=== PATIENT | female | born 1990 | race African-American/Black ===

== ENCOUNTER 2018-03-27 08:32 | Emergency (ER) | payer OTHER ==
[2018-03-27 08:58] VITALS: TEMP 98.3; BMI 23.2
--- NOTE | 2018-03-27 09:38 | PDOC ---
History of Present Illness - General History Source: Patient Exam Limitations: No Limitations - History of Present Illness Initial Comments: 03/27/18 09:36 Patient is a 28-year-old female, , currently 12 weeks and 4 days , who presents to the emergency department today for 1 day of vaginal bleeding. Patient states she woke up this morning and noticed blood on her panties. She states that she used the restroom a large amount of blood filled the toilet bowl. LMP was 12/30/17. Admits to nausea and vomiting, however patient states that this is in-line with her morning sickness. Denies fever, chills, abdominal pain, frequency, urgency and hematuria. RESIN FILTERER: Dr. Palomino <Mickie Valencia - Last Filed: 03/27/18 12:15> <Denise Morales - Last Filed: 03/27/18 15:43> - General Chief Complaint: Vaginal Bleeding Stated Complaint: VAGINAL BLEEDING (13 WKS ) Time Seen by Provider: 03/27/18 09:24 Past History - Travel Traveled outside of the country in the last 30 days: No Close contact w/someone who was outside of country & ill: No - Past Medical History Anemia: No Asthma: No Cancer: No Cardiac Disorders: No CVA: No COPD: No CHF: No Dementia: No Diabetes: No GI Disorders: Yes (reflux) Disorders: No HTN: No Hypercholesterolemia: No Liver Disease: No Psychiatric Problems: Yes (depression) Seizures: No Thyroid Disease: No - Surgical History Abdominal Surgery: No Appendectomy: No Cardiac Surgery: No Cholecystectomy: No Lung Surgery: No Neurologic Surgery: No Orthopedic Surgery: No - Reproductive History (#): 3 Para: 1 Therapeutic (s) & number: Yes (1) Tubal Ligation: No Spontaneous : 1 - Immunization History Immunization Up to Date: Yes - Suicide/Smoking/Psychosocial Hx Smoking History: Never smoked Have you smoked in the past 12 months: No Hx Alcohol Use: Yes (occasional) Drug/Substance Use Hx: Yes (marijuana) Substance Use Type: Marijuana Hx Substance Use Treatment: No (SMOKED 07/12/13) <Mickie Valencia - Last Filed: 03/27/18 12:15> <Denise Morales - Last Filed: 03/27/18 15:43> - Past Medical History Allergies/Adverse Reactions: Allergies Allergy/AdvReac Type Severity Reaction Status Date / Time No Known Drug Allergies Allergy Verified 03/27/18 08:56 Home Medications: Ambulatory Orders Naproxen [EC-Naprosyn] 500 mg PO BID #20 tablet.ec 02/10/14 Pantoprazole Sodium [Protonix -] 20 mg PO DAILY 02/10/14 traZODone HCL [Desyrel -] 50 mg PO HS 02/10/14 Ibuprofen [Motrin] 600 mg PO TID #30 tablet 09/18/15 Penicillin V Potassium [Pen Vee K -] 500 mg PO TID #30 tablet 09/18/15 Review of Systems - Review of Systems Able to Perform ROS?: Yes Comments:: 03/27/18 09:34 CONSTITUTIONAL: Absent: fever, chills, diaphoresis, generalized weakness, malaise, loss of appetite HEENT: Absent: rhinorrhea, nasal congestion, throat pain, throat swelling, difficulty swallowing, mouth swelling, ear pain, eye pain, visual Changes CARDIOVASCULAR: Absent: chest pain, loss of consciousness, palpitations, irregular heart rate, peripheral edema RESPIRATORY: Absent: cough, shortness of breath, dyspnea with exertion, orthopnea, wheezing, stridor, hemoptysis GASTROINTESTINAL: Absent: abdominal pain, abdominal distension, nausea, vomiting, diarrhea, constipation, melena, hematochezia GENITOURINARY: Present: vaginal bleeding Absent: dysuria, frequency, urgency, hesitancy, hematuria, flank pain, genital pain MUSCULOSKELETAL: Absent: myalgia, arthralgia, joint swelling SKIN: Absent: rash, itching, pallor HEMATOLOGIC/IMMUNOLOGIC: Absent: easy bleeding, easy bruising, lymphadenopathy, frequent infections ENDOCRINE: Absent: unexplained weight gain, unexplained weight loss, heat intolerance, cold intolerance NEUROLOGIC: Absent: headache, focal weakness or paresthesias, dizziness, unsteady gait, seizure, mental status changes, bladder or bowel incontinence PSYCHIATRIC: Absent: anxiety, depression, suicidal or homicidal ideation, hallucinations. Is the patient limited American proficient: No <Mickie Valencia - Last Filed: 03/27/18 12:15> *Physical Exam - Vital Signs Last Vital Signs Temp Pulse Resp BP Pulse Ox 98.3 F 89 16 118/54 L 100 03/27/18 08:57 03/27/18 08:57 03/27/18 08:57 03/27/18 08:57 03/27/18 08:57 - Physical Exam Comments: 03/27/18 09:34 GENERAL: Well developed, well nourished. Awake and alert. No acute distress. HEENT: Normocephalic, atraumatic. PERRLA, EOMI. No conjunctival pallor. Sclera are non- icteric. Moist mucous membranes. Oropharynx is clear. NECK: Supple. Full ROM. No JVD. Carotid pulses 2+ and symmetric, without bruits. No thyromegaly. No lymphadenopathy. CARDIOVASCULAR: Regular rate and rhythm. No murmurs, rubs, or gallops. Distal pulses are 2+ and symmetric. PULMONARY: No evidence of respiratory distress. Lungs clear to auscultation bilaterally. No wheezing, rales or rhonchi. ABDOMINAL: Soft. Non-tender. Non-distended. No rebound or guarding. No organomegaly. Normoactive bowel sounds. Pelvic: External genitalia normal without lesions.Vaginal vault with brownish discharge. No paco blood on bimanual exam. Cervix is long and closed. No cervical motion tenderness. Uterus is nontender and normal in size. Adnexa are nontender and without masses. MUSCULOSKELETAL Normal range of motion at all joints. No bony deformities or tenderness. No CVA tenderness. EXTREMITIES: No cyanosis. No clubbing. No edema. No calf tenderness. SKIN: Warm and dry. Normal capillary refill. No rashes. No jaundice. NEUROLOGICAL: Alert, awake, appropriate. Cranial nerves 2-12 intact. No deficits to light touch and temperature in face, upper extremities and lower extremities. No motor deficits in the in face, upper extremities and lower extremities. Normoreflexic in the upper and lower extremities. Normal speech. Toes are down- going bilaterally. Gait is normal without ataxia. PSYCHIATRIC: Cooperative. Good eye contact. Appropriate mood and affect. <Mickie Valencia - Last Filed: 03/27/18 12:15> - Vital Signs Last Vital Signs Temp Pulse Resp BP Pulse Ox 98.3 F 78 16 120/68 100 03/27/18 08:57 03/27/18 12:30 03/27/18 08:57 03/27/18 12:30 03/27/18 08:57 <Denise Morales - Last Filed: 03/27/18 15:43> ED Treatment Course - LABORATORY CBC & Chemistry Diagram: 03/27/18 10:03 <Mickie Valencia - Last Filed: 03/27/18 12:15> - LABORATORY CBC & Chemistry Diagram: 03/27/18 10:03 - ADDITIONAL ORDERS Additional order review: Laboratory Results 03/27/18 03/27/18 03/27/18 10:03 10:03 10:03 Beta HCG, Quant 64010.0 Urine Color Yellow Urine Appearance Clear Urine pH 5.0 Ur Specific Scotts 1.021 Urine Protein 1+ H Urine Glucose (UA) Negative Urine Ketones 2+ H Urine Blood 2+ H Urine Nitrite Negative Urine Bilirubin Negative Urine Urobilinogen 4.0 e.u/dl H Ur Leukocyte Esterase Negative Urine WBC (Auto) 4 Urine RBC (Auto) 8 Ur Epithelial Cells Rare Hyaline Casts 2 Urine Mucus Moderate Blood Type A POSITIVE Antibody Screen Negative 03/27/18 10:03 RBC 3.73 MCV 95.3 MCHC 32.7 RDW 13.2 MPV 8.4 Neutrophils % 68.5 D Lymphocytes % 21.7 D Monocytes % 7.3 Eosinophils % 1.9 D Basophils % 0.6 <Denise Morales - Last Filed: 03/27/18 15:43> Medical Decision Making - Medical Decision Making 03/27/18 12:16 Patient is a 28-year-old female who presents to the emergency department today with vaginal bleeding since this morning. Patient is currently 13 weeks by dates. -On bimanual exam, cervix is long and closed. No cervical motion tenderness or adnexal pain. Brownish discharge noted at the end of the exam on gloves. -Abdominal exam is normal without guarding rebound or tenderness. -Patient blood type is A+. -No leukocytosis or shift on CBC. HgB WNL. -Ultrasound shows a single intrauterine gestation measuring approximately 12 weeks. There is a heart rate of 174. R ovary appears unremarkable, L ovary was not visualized. -Most probable diagnosis threatened miscarriage at this time. We'll discharge patient home with supportive therapy, rest, and FEATHER RENOVATOR follow-up. -I discussed the physical exam findings, ancillary test results and final diagnoses with the patient. I answered all of the patient's questions. The patient was satisfied with the care received and felt comfortable with the discharge plan and treatment plan. The Patient agrees to follow up with the primary care physician/specialist within 24-72 hours. Return precautions were given. <CarlosTrey pattersonca - Last Filed: 03/27/18 12:15> *DC/Admit/Observation/Transfer - Discharge Dispostion Decision to Admit order: No <Mickie Valencia - Last Filed: 03/27/18 12:15> - Attestations Physician Attestion: I reviewed the case with the mid-level practitioner and agree with the mid- level practitioner's assessment, diagnosis and disposition. <Denise Morales - Last Filed: 03/27/18 15:43> Diagnosis at time of Disposition: Threatened miscarriage - Discharge Dispostion Disposition: HOME Condition at time of disposition: Stable - Referrals Referrals: Presley Aleman [Primary Care Provider] - Liliya Palomino MD [Staff Physician] - - Patient Instructions Printed Discharge Instructions: DI for Threatened Additional Instructions: Your ultrasound today showed a approximately 12 weeks along with a heart rate of 174. Your vaginal bleeding could possibly be from a threatened . Please follow up with her RESIN FILTERER this week. Please rest and drink plenty of fluids. Return to the emergency department for worsening pain, vaginal bleeding were you 're going through more than 1 sanitary napkin in hour, fevers, or if you have any changes in your symptoms. - Post Discharge Activity Forms/Work/School Notes: Back to Work
[2018-03-27 10:27] LABS: BASO % 0.6 % (0-2.0); EOS % 1.9 % (0-4.5); HEMATOCRIT 35.6 % (32.4-45.2); HEMOGLOBIN 11.6 GM/dL (10.7-15.3); LYMPH % 21.7 % (8-40); MCH 31.2 pg (25.7-33.7); MCHC 32.7 g/dl (32.0-36.0); MEAN CELL VOLUME 95.3 fl (80-96); MEAN PLT VOLUME 8.4 fl (7.5-11.1); MONO % 7.3 % (3.8-10.2); NEUT % 68.5 % (42.8-82.8); PLATELET COUNT 249 K/MM3 (134-434); RBC 3.73 M/mm3 (3.60-5.2); RDW 13.2 % (11.6-15.6); WHITE BLOOD COUNT 5.6 K/mm3 (4.0-10.0)
[2018-03-27 10:48] LABS: URINE APPEARANCE CLEAR; URINE BILIRUBIN NEGATIVE (<2.0 mg/dL); URINE COLOR YELLOW; URINE GLUCOSE (UA) NEGATIVE (NEGATIVE); URINE KETONE 2+ (NEGATIVE); URINE LEUK ESTERASE NEGATIVE (NEGATIVE); URINE NITRITE NEGATIVE (NEGATIVE); URINE PROTEIN 1+ (NEGATIVE); URINE UROBILINOGEN 4.0 E.U/dl mg/dL (0.2-1.0)
[2018-03-27 11:10] LABS: EPI CELLS RARE /HPF (FEW); URINE HYALINE CAST 2 /lpf; URINE MUCUS MODERATE
[2018-03-27 12:30] VITALS: BP 120/68; PULSE 78
== END 2018-03-27 12:30 | disposition home or self-care (01) ==
LOC: JER 08:32
DX: O26.891 Other specified pregnancy related conditions, first trimester (principal); O20.0 Threatened abortion; Z3A.12 12 weeks gestation of pregnancy
CPT/HCPCS: 36415; 76801-TC; 81003; 81015; 84702; 85025; 86850; 86900; 86901; 87086; 99282-25

== ENCOUNTER 2018-10-05 20:30 | Inpatient (IN) | payer OTHER ==
[2018-10-05] MEDS ORDERED: BUTORPHANOL TARTRATE 1 MG/ML VIAL IVPB ONE (21:28)
[2018-10-05] MEDS ORDERED: PROMETHAZINE HCL 25 MG/1 ML VIAL IVPUSH ONE (21:28)
[2018-10-05 21:31] LABS: BASO % 0.8 % (0-2.0); EOS % 3.3 % (0-4.5); HEMATOCRIT 32.4 % (32.4-45.2); HEMOGLOBIN 10.4 GM/dL (10.7-15.3); LYMPH % 24.6 % (8-40); MCH 29.3 pg (25.7-33.7); MEAN CELL VOLUME 91.3 fl (80-96); MEAN PLT VOLUME 9.5 fl (7.5-11.1); MONO % 8.4 % (3.8-10.2); NEUT % 62.9 % (42.8-82.8); PLATELET COUNT 230 K/MM3 (134-434); RBC 3.55 M/mm3 (3.60-5.2); RDW 13.7 % (11.6-15.6); WHITE BLOOD COUNT 8.9 K/mm3 (4.0-10.0)
[2018-10-05 21:54] LABS: INR 0.97 (0.83-1.09); PROTHROMBIN TIME (PATIENT) 11.5 SEC (9.7-13.0)
[2018-10-05 21:55] LABS: CALCIUM 8.5 mg/dL (8.5-10.1); CREATININE 0.5 mg/dL (0.55-1.3); POTASSIUM 3.9 mmol/L (3.5-5.1)
[2018-10-05 21:57] LABS: ACTIVATED PTT 25.2 SECONDS (25.2-36.5)
[2018-10-05 22:15] VITALS: BMI 34.2
[2018-10-05] MEDS ORDERED: DEXTROSE 5%-LACTATED RINGERS 500 ML IV SCH (22:30)
[2018-10-05] MEDS ORDERED: DEXTROSE 5%-LACTATED RINGERS 500 ML IV ONE (22:30)
[2018-10-06] MEDS ORDERED: PROMETHAZINE HCL 25 MG/1 ML VIAL ONE (01:45)
[2018-10-06] MEDS ORDERED: BUTORPHANOL TARTRATE 2 MG/ML VIAL ONE (01:45)
[2018-10-06] MEDS ORDERED: LIDOCAINE HCL 1% PRESERVATIVE FREE - 30ML VIAL ONE (03:20)
[2018-10-06] MEDS ORDERED: OXYTOCIN 20 UNITS in 0.9% NS 20 UNIT/1,000 ML INFUS.BAG IV ONE (03:20)
--- NOTE | 2018-10-06 04:35 | PN ---
Delivery - Delivery Vaginal Delivery: No Problems Type of Anesthesia: Local (pt s/p stadol/phenergan during labor as well for analgesia) Episiotomy/Laceration: 1st degree EBL (cc): 300 Delivery, Single - Stages of Labor Date of Delivery: 10/06/18 Date Placenta Delivered: 10/06/18 Placenta: Yes: Spontaneous - Condition of Gender: Female Position: Right, OA - 1 Minute Total Score: 9 5 Minutes Total Score: 9 - Feeding Plan Initial Plan: Elected not to breastfeed exclusively throughout hospitalization Remarks - Remarks Remarks: pt s/p normal from MARC position anterior shoulder (left) delivered with ease along with remainder of 3vc noted, clamped and cut placenta delivered in tact 1st degree lac repaired with 2-0 vicryl suture sponge and needle count correct mom stable baby to well baby nursery pitocin infusing after delivery
--- NOTE | 2018-10-06 04:40 | HP ---
Past Medical History - Admission History of Present Illness: 28 y/o P1 female with SIUP at 39+ weeks here with painful contractions. no LOF/VB uncomplicated GBS negative HIV negative History Source: Patient, Medical Record Limitations to Obtaining History: No Limitations - Past Medical History Pulmonary: No: Asthma Gastrointestinal: No: GERD Hepatobiliary: No: Hepatitis B, Hepatitis C Renal/: No: UTI ...: 4 ...Para: 1 ...Term: 1 ...: 0 ...Spon : 1 ...Induced : 1 ...Multiple Gestation: 0 ...LMP: 01/01/18 ... Weeks Gestation by Dates: 39.4 ...EDC by Dates: 10/08/18 ...EDC by Sono: 10/09/18 Heme/Onc: No: Anemia Infectious Disease: No: HIV, MRSA, STD's Psych: No: Anxiety, Bipolar, Depression - Past Surgical History Past Surgical History: Yes: None Hx Myomectomy: No Hx Transabdominal Cerclage: No - Smoking History Smoking history: Never smoked Have you smoked in the past 12 months: No - Alcohol/Substance Use Hx Alcohol Use: No - Social History ADL: Independent History of Recent Travel: No Home Medications - Allergies Allergies/Adverse Reactions: Allergies Allergy/AdvReac Type Severity Reaction Status Date / Time No Known Drug Allergies Allergy Verified 10/05/18 21:25 - Home Medications Home Medications: Ambulatory Orders NK [No Known Home Medication] 10/05/18 Review of Systems - Review of Systems Constitutional: reports: No Symptoms Eyes: reports: No Symptoms HENT: reports: No Symptoms Neck: reports: No Symptoms Cardiovascular: reports: No Symptoms Respiratory: reports: No Symptoms Gastrointestinal: reports: No Symptoms Genitourinary: reports: No Symptoms Breasts: reports: No Symptoms Reported Musculoskeletal: reports: No Symptoms Integumentary: reports: No Symptoms Neurological: reports: No Symptoms Endocrine: reports: No Symptoms Hematology/Lymphatic: reports: No Symptoms Psychiatric: reports: No Symptoms Physical Exam - Maternity Vital Signs: Vital Signs Temperature 98.6 F 10/06/18 03:00 Pulse Rate 20 L 10/06/18 03:00 Respiratory Rate 84 H 10/06/18 03:00 Blood Pressure 127/71 10/06/18 03:00 O2 Sat by Pulse Oximetry (%) Constitutional: Yes: Well Nourished, No Distress, Calm Eyes: Yes: Conjunctiva Clear, EOM Intact HENT: Yes: Atraumatic, Normocephalic Neck: Yes: Trachea Midline Cardiovascular: Yes: Regular Rate and Rhythm Lungs: Clear to auscultation - Abdominal Exam/OB Number of Fetuses: Single Presentation: Vertex Contractions: Yes Regularity: Regular Category: I Accelerations: Uniform - Vaginal Exam/OB Vaginal Bleediing: No Dilatation (cm): 2 Effacement (%): 100 Amniotic Membrane Status: Intact Presentation: Vertex/Position Station: -3 - Physical Exam Psychiatric: Yes: Alert, Oriented - Labs Lab Results: CBC, BMP 10/05/18 20:20 10/05/18 20:20 Hemorrhage Risk Assessment - Risk Factors Medium Risk Factors: Yes: None High Risk Factors: Yes: None Risk Score: 1 Risk Level: Medium Risk Problem List - Problems (1) Active labor at term Code(s): [id number] - Assessment/Plan 28 y/o p1 with SIUP at 39.4 weeks in labor admit to L&D analgesia prn GBS negative
[2018-10-06] MEDS ORDERED: BENZOCAINE 28 GM HEMORRHOIDAL OINTMENT TP PRN (04:43)
[2018-10-06] MEDS ORDERED: BENZOCAINE 20% 57 GM BOTTLE TP PRN (04:43)
[2018-10-06] MEDS ORDERED: WITCH HAZEL 50% (TUCKS) 40 PAD/JAR PAD TP PRN (04:43)
[2018-10-06] MEDS ORDERED: METHYLERGONOVINE MALEATE 0.2 MG/1 ML AMP IM PRN (04:43)
[2018-10-06] MEDS ORDERED: BISACODYL 10 MG SUPP.RECT RC PRN (04:43)
[2018-10-06] MEDS ORDERED: OXYTOCIN 20 UNITS in 0.9% NS 20 UNIT/1,000 ML INFUS.BAG IV SCH (04:45)
[2018-10-06] MEDS: IBUPROFEN 600 MG TABLET (FP) PO PRN ×2 (07:21→16:31)
[2018-10-06] MEDS: FERROUS SO4 325 MG TABLET (FP) PO SCH ×3 (07:22→16:33)
[2018-10-06] MEDS: ACETAMINOPHEN 325 MG TABLET (FP) PO PRN ×2 (07:22→16:32)
--- NOTE | 2018-10-07 07:10 | PN ---
Post Note - Post Date of Delivery: 10/06/18 Post Day: 1 Vital Signs: Vital Signs - 24 hr 10/06/18 10/06/18 10/06/18 09:20 14:00 17:27 Temperature 98.7 F 98.7 F Pulse Rate 83 102 H 90 Respiratory 18 18 18 Rate Blood Pressure 121/75 115/67 129/78 10/06/18 21:01 Temperature 97.4 F L Pulse Rate 89 Respiratory 20 Rate Blood Pressure 117/62 - Subjective Subjective: No Complaints - Objective Afebrile: Yes Breast: Not engorged Abdomen: Soft, Non-tender Uterus: Fundus firm Vagina: Scant lochia Extremities: Non-tender - Assessment/Plan (1) Vaginal delivery Assessment: S/P Normal Plan: Routine Care
[2018-10-07 07:52] LABS: BASO % 0.4 % (0-2.0); EOS % 1.8 % (0-4.5); HEMATOCRIT 27.4 % (32.4-45.2); HEMOGLOBIN 8.8 GM/dL (10.7-15.3); LYMPH % 25.1 % (8-40); MCH 29.6 pg (25.7-33.7); MCHC 32.2 g/dl (32.0-36.0); MEAN CELL VOLUME 91.8 fl (80-96); MEAN PLT VOLUME 9.4 fl (7.5-11.1); MONO % 6.8 % (3.8-10.2); NEUT % 65.9 % (42.8-82.8); PLATELET COUNT 202 K/MM3 (134-434); RBC 2.98 M/mm3 (3.60-5.2); RDW 14.1 % (11.6-15.6); WHITE BLOOD COUNT 11.2 K/mm3 (4.0-10.0)
[2018-10-07] MEDS: ACETAMINOPHEN 325 MG TABLET (FP) PO PRN ×2 (08:58→19:35)
[2018-10-07] MEDS: IBUPROFEN 600 MG TABLET (FP) PO PRN ×2 (08:59→19:35)
[2018-10-07] MEDS: FERROUS SO4 325 MG TABLET (FP) PO SCH ×3 (08:59→18:01)
[2018-10-07] MEDS ORDERED: SENNOSIDES/DOCUSATE COMBO (SENNA PLUS) TABLET (UD) PO PRN (22:00)
[2018-10-08] MEDS: IBUPROFEN 600 MG TABLET (FP) PO PRN ×2 (03:17→09:48)
[2018-10-08] MEDS: ACETAMINOPHEN 325 MG TABLET (FP) PO PRN ×2 (03:17→09:49)
--- NOTE | 2018-10-08 07:54 | DS ---
Physical Exam-INCOME TAX RETURN PREPARER Vital Signs: Vital Signs Temperature 99.1 F 10/07/18 20:07 Pulse Rate 86 10/07/18 20:07 Respiratory Rate 20 10/07/18 20:07 Blood Pressure 122/70 10/07/18 20:07 O2 Sat by Pulse Oximetry (%) 100 10/06/18 05:25 Constitutional: Yes: Well Nourished, No Distress, Calm Cardiovascular: Yes: WNL Respiratory: Yes: WNL Gastrointestinal: Yes: WNL ....Post : Yes: Uterus firm, Uterus non-tender Edema: No Neurological: Yes: WNL, Alert, Oriented Labs: CBC, BMP 10/07/18 06:50 10/05/18 20:20 Delivery - Delivery Vaginal Delivery: No Problems Type of Anesthesia: Local Episiotomy/Laceration: Vaginal Extension/lac, 1st degree EBL (cc): 300 Delivery, Single - Stages of Labor Date 1st Stage Initiatied: 10/05/18 Time 1st Stage Initiated: 20:00 Date 2nd Stage Initiated: 10/06/18 Time 2nd Stage Initiated: 03:15 Date of Delivery: 10/06/18 Time of Delivery: 04:09 Time Placenta Delivered: 04:25 Placenta: Yes: Spontaneous - Condition of Infant Machine Records Units Supervisor/Pot Room Tapper Present: No Gender: Female Weight: 6 lb 13 oz Position: Right, OA Total Hours ROM (Hrs/Mins): 45min - 1 Minute Total Score: 9 5 Minutes Total Score: 9 - Stanley Feeding Plan Initial Plan: Elected not to breastfeed exclusively throughout hospitalization Discharge Summary Reason For Visit: LABOR Current Active Problems Active labor at term (Acute) Procedures: Principal: Normal vaginal delivery Condition: Good - Instructions Diet, Activity, Other Instructions: Physical activity Resume your normal everyday activity as tolerated no heavy lifting or exercise until seen by your surgeon. You may walk unlimited marci of and climb stairs. You may resume driving the car when you feel safe and comfortable behind the wheel. No sexual activity as instructed. Wound care If you have a bandage, leave it on, and keep dry for 48-72 hours. After that time discard the outer bandage. If they are tapes on the skin under the out of bandage leave them in place. They will peel off in the next 7 to 10 days. Do Not Peel them off. You may shower the day after surgery. If there are tapes present on the skin, you may shower over them. Diet There are no dietary restrictions. Eat healthy, high-fiber foods. Drink 6 to 8 glasses of liquid each day. This will assist in keeping your bowels are regular. Pain management You may take Tylenol or acetaminophen or Ibuprofen (for example, Motrin, Advil etc.) from my pain prescription medication is ordered should be taken as prescribed for moderate to severe pain. Call MD for any of the following: Severe pain not relieved by medication Fever of 101 or higher Excessive bleeding or drainage on dressing Inability to urinate Disposition: HOME - Home Medications Comprehensive Discharge Medication List: Ambulatory Orders Ibuprofen [Motrin -] 600 mg PO QID #28 tablet 10/07/18
[2018-10-08] MEDS: FERROUS SO4 325 MG TABLET (FP) PO SCH ×2 (09:48→13:52)
[2018-10-08 11:18] VITALS: BP 113/61; PULSE 98; TEMP 98.8
== END 2018-10-08 14:30 | disposition home or self-care (01) | DRG 560 ==
LOC: JDEL 20:30 → JLDR 21:20 → J3W 10-06 05:51
PROVIDERS: ADMIT Obstetrics & Gynecology; ATTEND Obstetrics & Gynecology
PROC: 10E0XZZ Delivery of Products of Conception, External Approach (ICD-10-PCS; principal; 2018-10-06)
PROC: 0HQ9XZZ Repair Perineum Skin, External Approach (ICD-10-PCS; 2018-10-06)
DX: O70.0 First degree perineal laceration during delivery (principal); Z3A.39 39 weeks gestation of pregnancy; Z37.0 Single live birth
CPT/HCPCS: 36415; 59409; 80048; 85025; 85610; 85730; 86593; 86850; 86900; 86901

== ENCOUNTER 2019-03-25 14:35 | Emergency (ER) | payer OTHER ==
[2019-03-25 14:46] VITALS: BMI 25.9
[2019-03-25] MEDS ORDERED: ACETAMINOPHEN 325 MG TABLET (FP) PO ONE (14:59)
[2019-03-25] MEDS ORDERED: SULFAMETHOXAZOLE/TRIMETHOPRIM 800MG/160MG D.S. TABLET PO ONE (14:59)
[2019-03-25] MEDS ORDERED: SULFAMETHOXAZOLE/TRIMETHOPRIM 800MG/160MG D.S. TABLET ONE (15:05)
[2019-03-25] MEDS ORDERED: ACETAMINOPHEN 325 MG TABLET (FP) ONE (15:05)
[2019-03-25 15:06] LABS: EPI CELLS 4.8 /HPF (0-5/HPF); HYALINE CASTS 4 /lpf (0-8); URINE APPEARANCE CLOUDY; URINE BACTERIA 1041.6 /hpf (NEGATIVE); URINE BILIRUBIN NEGATIVE (NEGATIVE); URINE COLOR YELLOW; URINE GLUCOSE (UA) NEGATIVE (NEGATIVE); URINE KETONE 2+ (NEGATIVE); URINE LEUK ESTERASE 3+ (NEGATIVE); URINE NITRITE NEGATIVE (NEGATIVE); URINE PROTEIN 1+ (NEGATIVE); URINE RBC 7 /hpf (0-4); URINE WBC 341 /hpf (0-5)
--- NOTE | 2019-03-25 15:06 | PDOC ---
History of Present Illness - General Chief Complaint: Pain, Acute Stated Complaint: LOWER BACK PAIN Time Seen by Provider: 03/25/19 14:48 History Source: Patient Exam Limitations: No Limitations - History of Present Illness Travel History: No Initial Comments: 03/25/19 15:01 29-year-old female with no past medical history with a 5-month-old child at home presents to the ED with 1 week of initial suprapubic cramping associated mild hematuria. Patient states symptoms resolved and then pain to her back began 4 days ago associated with chills. Patient denies irregular menses, diabetes, recent UTI, or diarrhea. Patient took nothing for the above and decided to come to the ER today since she could not wait to see her PARKING PATROLLER. Timing/Duration: reports: getting worse Quality: reports: mild Abdominal Pain Onset Location: reports: flank Pain Radiation: reports: no radiation Activities at Onset: reports: none Aggravating Factors: improves with: Voiding Alleviating Factors: improves with: Rest Past History - Travel Traveled outside of the country in the last 30 days: No Close contact w/someone who was outside of country & ill: No - Past Medical History Allergies/Adverse Reactions: Allergies Allergy/AdvReac Type Severity Reaction Status Date / Time No Known Drug Allergies Allergy Verified 03/25/19 14:41 Home Medications: Ambulatory Orders Ibuprofen [Motrin -] 600 mg PO QID #28 tablet 10/07/18 Back Brace [Ultra Support] 1 each MC QID #1 each 10/08/18 Anemia: No Asthma: No Cancer: No Cardiac Disorders: No CVA: No COPD: No CHF: No Dementia: No Diabetes: No GI Disorders: Yes (reflux) Disorders: No HTN: No Hypercholesterolemia: No Liver Disease: No Psychiatric Problems: Yes (depression) Seizures: No Thyroid Disease: No - Surgical History Abdominal Surgery: No Appendectomy: No Cardiac Surgery: No Cholecystectomy: No Lung Surgery: No Neurologic Surgery: No Orthopedic Surgery: No - Reproductive History (#): 3 Para: 1 Therapeutic (s) & number: Yes (1) Tubal Ligation: No Spontaneous : 1 - Immunization History Immunization Up to Date: Yes - Psycho Social/Smoking Cessation Hx Smoking History: Never smoked Have you smoked in the past 12 months: No Hx Alcohol Use: Yes Drug/Substance Use Hx: No Substance Use Type: Marijuana Hx Substance Use Treatment: No Patient Lives Alone: No Lives with/in: spouse/SO Review of Systems - Review of Systems Able to Perform ROS?: Yes Constitutional: Yes: Chills. No: Fever HEENTM: No: Symptoms Reported Respiratory: No: Symptoms reported Cardiac (ROS): No: Symptoms Reported ABD/GI: No: Symptoms Reported : Yes: Flank Pain Musculoskeletal: No: Symptoms Reported Integumentary: No: Symptoms Reported Neurological: No: Symptoms reported *Physical Exam - Vital Signs Last Vital Signs Temp Pulse Resp BP Pulse Ox 99.1 F 112 H 18 125/78 100 03/25/19 14:41 03/25/19 14:41 03/25/19 14:41 03/25/19 14:41 03/25/19 14:41 - Physical Exam General Appearance: Yes: Nourished, Appropriately Dressed. No: Apparent Distress HEENT: negative: Pale Conjunctivae Neck: positive: Normal Thyroid Respiratory/Chest: positive: Lungs Clear, Normal Breath Sounds. negative: Respiratory Distress, Accessory Muscle Use Cardiovascular: positive: Regular Rhythm, Tachycardia. negative: Murmur Gastrointestinal/Abdominal: positive: Soft. negative: Tenderness Musculoskeletal: positive: CVA Tenderness (R) (mild). negative: Vertebral Tenderness Extremity: positive: Normal Inspection Integumentary: positive: Normal Color, Warm, Moist Neurologic: positive: Motor Strength 5/5 (ambulatory) Medical Decision Making - Medical Decision Making 03/25/19 15:05 Chief complaint: Initial suprapubic pressure associated with hematuria last week now with chills and flank pain. No meds taken unable to see AIRPORT ENGINEER came to ER. Exam: Tachycardic with low-grade temp mild CVA tenderness to the right otherwise benign exam. Plan: Tylenol and Bactrim ordered here along with urinalysis urine and urine culture. Patient to be discharged home with the same. Pt requesting to leave since she has a 5 month old at home Discharge - Discharge Information Problems reviewed: No Clinical Impression/Diagnosis: Pyelonephritis Condition: Improved Disposition: HOME - Follow up/Referral - Patient Discharge Instructions Patient Printed Discharge Instructions: DI for Kidney Infection Additional Instructions: Please drink plenty of fluids. Drink at least 2 L of water daily basis. Please clean from front to back. Take your second dose of Bactrim tonight and then start twice a day for the next 14 days. Take Tylenol for discomfort and fever. - Post Discharge Activity
[2019-03-25 15:20] VITALS: BP 122/75; PULSE 101; TEMP 98.3
== END 2019-03-25 15:18 | disposition home or self-care (01) ==
LOC: JER 14:35
DX: N12 Tubulo-interstitial nephritis, not specified as acute or chronic (principal); Z87.19 Personal history of other diseases of the digestive system; Z86.59 Personal history of other mental and behavioral disorders
CPT/HCPCS: 81003; 84703; 87086; 87186; 99282-25

== ENCOUNTER 2019-06-07 17:23 | Day surgery (SDC) | payer OTHER ==
[2019-06-07 18:03] VITALS: BMI 30.2
--- NOTE | 2019-06-07 18:03 | PDOC ---
Rapid Medical Evaluation Time Seen by Provider: 06/07/19 17:58 Medical Evaluation: Allergies Allergy/AdvReac Type Severity Reaction Status Date / Time No Known Drug Allergies Allergy Verified 06/07/19 17:58 06/07/19 17:58 CC: abd pain after intercourse Pt is a 29 y/o female who presents to the ED with suprapubic abdominal pain after having sexual intercourse today. LMP was 05/12/19. Pt is having light spotting currently. Brief exam: Moderate distress secondary to discomfort. Significant suprapubic tenderness to palpation, no cva tenderness Orders: cbc, cmp, UA, u-preg To ED for further evaluation Discharge Disposition - Diagnosis Lower abdominal pain - Referrals - Patient Instructions - Post Discharge Activity
[2019-06-07 18:48] LABS: BASO % 0.5 % (0-2.0); EOS % 1.6 % (0-4.5); HEMATOCRIT 34.6 % (32.4-45.2); HEMOGLOBIN 11.2 GM/dL (10.7-15.3); LYMPH % 26.6 % (8-40); MCH 30.4 pg (25.7-33.7); MCHC 32.4 g/dl (32.0-36.0); MEAN CELL VOLUME 93.7 fl (80-96); MEAN PLT VOLUME 8.9 fl (7.5-11.1); MONO % 5.9 % (3.8-10.2); NEUT % 65.4 % (42.8-82.8); PLATELET COUNT 293 K/MM3 (134-434); RBC 3.69 M/mm3 (3.60-5.2); RDW 14.3 % (11.6-15.6); WHITE BLOOD COUNT 9.2 K/mm3 (4.0-10.0)
[2019-06-07 18:52] LABS: PH,URINE 6.5 (5.0-8.0); URINE APPEARANCE CLOUDY; URINE BILIRUBIN NEGATIVE (NEGATIVE); URINE COLOR YELLOW; URINE GLUCOSE (UA) NEGATIVE (NEGATIVE); URINE KETONE TRACE (NEGATIVE); URINE LEUK ESTERASE NEGATIVE (NEGATIVE); URINE NITRITE NEGATIVE (NEGATIVE); URINE PROTEIN TRACE (NEGATIVE)
--- NOTE | 2019-06-07 19:11 | PDOC ---
History of Present Illness - General Chief Complaint: Pain Stated Complaint: ABD PAIN Time Seen by Provider: 06/07/19 17:58 History Source: Patient - History of Present Illness Initial Comments: 06/07/19 19:47 Chief complaint: Pelvic pain Patient is a healthy 29-year-old female, G4, who states she had "normal" intercourse at 9:30 AM and after that had severe pain. She took some Tylenol in the morning. She continues to have severe pain. Her last period was the beginning of May but she does state that she had been spotting before that and the. Before that she was 18 days late. Patient has no fever, no dysuria. No vomiting patient states she has 1 sexual partner. Not on contraception GENERAL/CONSTITUTIONAL: No fever, weakness. dizziness HEAD, EYES, EARS, NOSE AND THROAT: No change in vision. No ear pain or discharge. No sore throat. CARDIOVASCULAR: No chest pain RESPIRATORY: No shortness of breath or cough GASTROINTESTINAL: No pain, nausea, vomiting, diarrhea or constipation GENITOURINARY: No dysuria, + pelvic pain MUSCULOSKELETAL: No neck or back pain SKIN: No rash NEUROLOGIC: No headache, vertigo, loss of consciousness, or loss of sensation. GENERAL: The patient is awake, alert, and fully oriented, very uncomfortable HEAD: Normal with no signs of trauma. EYES: Pupils equal, round and reactive to light, sclera anicteric, conjunctiva clear. ENT: pharynx: no erythema, no exudate, uvula midline NECK: supple CHEST: clear, nontender, rr ABD: soft, with lower abdominal tenderness Pelvic: External exam normal, some white discharge in the vagina, cervix is parous appearing, no bleeding. Patient has tenderness to the whole lower pelvis area, due to pain on and able to palpate ovaries or uterus BACK: no tenderness or signs of injury EXTREMITIES: Normal range of motion, no edema. NEUROLOGICAL: Normal speech, normal gait. SKIN: Warm, Dry Past History - Past Medical History Allergies/Adverse Reactions: Allergies Allergy/AdvReac Type Severity Reaction Status Date / Time No Known Drug Allergies Allergy Verified 06/07/19 17:58 Anemia: No Asthma: No Cancer: No Cardiac Disorders: No CVA: No COPD: No CHF: No Dementia: No Diabetes: No GI Disorders: Yes (reflux) Disorders: No HTN: No Hypercholesterolemia: No Liver Disease: No Psychiatric Problems: Yes (depression) Seizures: No Thyroid Disease: No - Surgical History Abdominal Surgery: No Appendectomy: No Cardiac Surgery: No Cholecystectomy: No Lung Surgery: No Neurologic Surgery: No Orthopedic Surgery: No - Reproductive History (#): 3 Para: 1 Therapeutic (s) & number: Yes (1) Tubal Ligation: No Spontaneous : 1 - Immunization History Immunization Up to Date: Yes - Psycho Social/Smoking Cessation Hx Smoking History: Never smoked Have you smoked in the past 12 months: No Hx Alcohol Use: No Drug/Substance Use Hx: No Substance Use Type: Marijuana Hx Substance Use Treatment: No *Physical Exam - Vital Signs Last Vital Signs Temp Pulse Resp BP Pulse Ox 98 F 87 18 95/44 L 99 06/07/19 17:59 06/07/19 17:59 06/07/19 17:59 06/07/19 17:59 06/07/19 17:59 ED Treatment Course - LABORATORY CBC & Chemistry Diagram: 06/07/19 18:15 06/07/19 18:15 - ADDITIONAL ORDERS Additional order review: Laboratory Results 06/07/19 06/07/19 18:15 18:15 Urine Color Yellow Urine Appearance Cloudy Urine pH 6.5 Ur Specific [place] 1.034 Urine Protein Trace Urine Glucose (UA) Negative Urine Ketones Trace H Urine Blood Negative Urine Nitrite Negative Urine Bilirubin Negative Urine Urobilinogen 1.0 Ur Leukocyte Esterase Negative Urine HCG, Qual Positive 06/07/19 18:15 RBC 3.69 MCV 93.7 MCHC 32.4 RDW 14.3 MPV 8.9 Neutrophils % 65.4 Lymphocytes % 26.6 Monocytes % 5.9 Eosinophils % 1.6 Basophils % 0.5 Medical Decision Making - Medical Decision Making 06/07/19 19:55 29-year-old female, G4, P2, A2 who came in with post coital pain from this morning. Patient was found to be and has significant pelvic pain. Patient's CBC is stable, UA is negative, chemistry is pending, STDs and urine culture added. RPR and quantitative hCG added and patient will have transvaginal ultrasound to evaluate for possible ectopic. Patient vitals are stable. Patient signed out to Dr. Pressley for further evaluation Discharge - Discharge Information Problems reviewed: Yes Clinical Impression/Diagnosis: Pelvic pain - Follow up/Referral Referrals: Presley Aleman [Primary Care Provider] - - Patient Discharge Instructions - Post Discharge Activity
[2019-06-07 19:26] LABS: ALBUMIN 3.7 g/dl (3.4-5.0); BILIRUBIN,TOTAL 0.4 mg/dL (0.2-1); BLOOD UREA NITROGEN 8.2 mg/dL (7-18); CALCIUM 9.1 mg/dL (8.5-10.1); CREATININE 0.7 mg/dL (0.55-1.3); POTASSIUM 4.2 mmol/L (3.5-5.1); TOT PROT 7.5 g/dl (6.4-8.2)
[2019-06-07] MEDS ORDERED: ACETAMINOPHEN 325 MG TABLET (FP) PO ONE (19:36)
[2019-06-07] MEDS ORDERED: ACETAMINOPHEN 325 MG TABLET (FP) ONE ×2 (19:42)
[2019-06-07] MEDS ORDERED: SODIUM CHLORIDE 0.9% 500 ML INFUS.BAG IV ONE (21:46)
--- NOTE | 2019-06-07 21:55 | PDOC ---
Documentation entered by Alexandru Bahena SCRIBE, acting as scribe for Rasheeda Williamson DO. Rasheeda Williamson DO: This documentation has been prepared by the Josef longoria Daniel, SCRIBE, under my direction and personally reviewed by me in its entirety. I confirm that the documentation accurately reflects all work, treatment, procedures, and medical decision making performed by me. Attending Attestation - Resident Resident Name: Viral Mckeon - ED Attending Attestation I have performed the following: I have examined & evaluated the patient, The case was reviewed & discussed with the resident, I agree w/resident's findings & plan, Exceptions are as noted - HPI HPI: 06/07/19 21:41 The patient is a 29 year old female with no past medical history here today for evaluation of abdominal pain. The patient reports that after having sex this morning around 9:30 she developed sharp crampy abdominal pain. She tried taking tylenol which provided no relief. She denies any vaginal bleeding or discharge. Patient denies headache, lightheadedness. Denies fever, chills. Denies chest pain, shortness of breath. Denies nausea, vomiting, diarrhea. LMP: 05/12/2019 Allergies: NKDA PCP: Presley Aleman OBGYN: Mayuri Renner - Physicial Exam PE: 06/07/19 21:41 Constitutional: Awake, alert, oriented. No acute distress. Head: Normocephalic. Atraumatic Eyes: PERRL. EOMI. Conjunctivae are not pale. ENT: Mucous membranes are moist and intact. Posterior pharynx without exudates or erythema. Uvula midline. Neck: Supple. Full ROM. No lymphadenopathy. Cardiovascular: +tachycardic. Regular rhythm. S1, S2 regular. Distal pulses are 2+ and symmetric. Pulmonary/Chest: No evidence of respiratory distress. Clear to auscultation bilaterally No wheezing, rales or rhonchi. Abdominal: +lower abdominal tenderness. Soft and non-distended. No rebound, guarding or rigidity. No organomegaly. No palpable masses. Good bowel sounds. Back: No CVA tenderness. Musculoskeletal: No edema. No cyanosis. No clubbing. Full range of motion in all extremities. No calf tenderness. Radial/pedal pulses are intact and 2+ bilaterally Skin: Skin is warm and dry. No petechiae. No purpura. Neurological: Alert and oriented to person, place, and time. Cranial nerves II -XII are grossly intact. Normal speech. Strength is grossly symmetric. No sensory deficits. Psychiatric: Good eye contact. Normal interaction, affect and behavior. - Medical Decision Making 06/07/19 21:50 a/p: 29yo female at about 3 weeks gestation with abd pain since 9am and vaginal spotting a few days ago -no active vaginal bleeding -pt upgraded from [facility] for eval of abd pain, preg, further eval -pt had labs sent that show a beta of 1300 -pt had an ultrasound that showed 2 complex hemorrhagic ovarian cysts, cannot exclude ectopic preg -type and screen sent -pt states she did not know she was and that this is not a desired preg -pt with diffuse lower abd pain -will repeat hgb at the 6 hr point -will discuss with [facility] [facility] -call placed to Dr. Renner/Georgette 06/07/19 22:56 resident discussed the case with Dr. Palomino who agrees with repeat h/h at the 6hr darrel, if stable ok to dc home and follow up with the office tomorrow, if h/h drops to call [facility] [employer] instrumentation engineering technician. 06/08/19 01:14 hgb dropped 2g repeat call to [facility] 06/08/19 01:14 pt A+ 06/08/19 02:[address] Roldan who will be in to evaluate the patient
--- NOTE | 2019-06-07 22:01 | PDOC ---
History of Present Illness - General Chief Complaint: Pain Stated Complaint: ABD PAIN Time Seen by Provider: 06/07/19 17:58 History Source: Patient Exam Limitations: No Limitations - History of Present Illness Initial Comments: 06/07/19 21:55 Wm Serrano is a 29F with LMP 26 days ago presenting with diffuse abdominal pain after intercourse this morning in the setting of positive urine test today. Patient was having intercourse at 09:30 when she suddenly had severe suprapubic pain, tried taking Tylenol to no effect, took a bath and felt better for a bit, ultimately was lying in bed for hours in pain before partner brought her to ED. Associated with nausea and vomiting 2x. Partner is father of her daughter, known for years, no concern for STI, no contraception or condom use. History of chlamydial infection that was treated without incident. No known history of ovarian cysts. OBGYN Dr. Renner, delivered both of her children, has 6yo and 7mo old daughters born by . LMP on May.12, says she has been spotting the last few days but no paco blood or discharge. Denies any other PMH or PSH, no medications taken. Past History - Past Medical History Allergies/Adverse Reactions: Allergies Allergy/AdvReac Type Severity Reaction Status Date / Time No Known Drug Allergies Allergy Verified 06/07/19 17:58 Home Medications: Ambulatory Orders NK [No Known Home Medication] 06/08/19 Anemia: No Asthma: No Cancer: No Cardiac Disorders: No CVA: No COPD: No CHF: No Dementia: No Diabetes: No GI Disorders: Yes (reflux) Disorders: No HTN: No Hypercholesterolemia: No Liver Disease: No Psychiatric Problems: Yes (depression) Seizures: No Thyroid Disease: No - Surgical History Abdominal Surgery: No Appendectomy: No Cardiac Surgery: No Cholecystectomy: No Lung Surgery: No Neurologic Surgery: No Orthopedic Surgery: No - Reproductive History (#): 3 Para: 1 Therapeutic (s) & number: Yes (1) Tubal Ligation: No Spontaneous : 1 - Immunization History Immunization Up to Date: Yes - Psycho Social/Smoking Cessation Hx Smoking History: Never smoked Have you smoked in the past 12 months: No Hx Alcohol Use: No Drug/Substance Use Hx: No Substance Use Type: Marijuana Hx Substance Use Treatment: No Review of Systems - Review of Systems Able to Perform ROS?: Yes Constitutional: No: Chills, Fever HEENTM: No: Symptoms Reported Respiratory: No: Cough, Shortness of Breath, SOB at Rest, Stridor, Wheezing, Productive cough Cardiac (ROS): No: Chest Pain, Edema, Irregular Heart Rate, Lightheadedness, Palpitations, Syncope, Chest Tightness ABD/GI: Yes: Abdominal cramping. No: Abdominal Distended, Constipated, Diarrhea , Nausea, Vomiting : No: Burning, Dysuria, Discharge, Frequency, Flank Pain, Hematuria, Incontinence, Pain Musculoskeletal: No: Symptoms Reported Integumentary: No: Symptoms Reported Neurological: No: Symptoms reported Endocrine: No: Symptoms Reported Hematologic/Lymphatic: No: Symptoms Reported All Other Systems: Reviewed and Negative *Physical Exam - Vital Signs Last Vital Signs Temp Pulse Resp BP Pulse Ox 98 F 90 18 91/56 L 99 06/07/19 17:59 06/07/19 21:40 06/07/19 21:40 06/07/19 21:40 06/07/19 21:40 - Physical Exam General Appearance: Yes: Nourished, Appropriately Dressed, Mild Distress HEENT: positive: EOMI, RODOLFO, Normal ENT Inspection, Normal Voice, Pharynx Normal , Hearing Grossly Normal. negative: Scleral Icterus (R), Scleral Icterus (L), Pharyngeal Erythema, Tonsillar Exudate, Tonsillar Erythema Neck: positive: Trachea midline, Normal Thyroid, Supple. negative: Tender, Lymphadenopathy (R), Lymphadenopathy (L), Tender lateral, Tender midline Respiratory/Chest: positive: Lungs Clear, Normal Breath Sounds. negative: Chest Tender, Respiratory Distress, Accessory Muscle Use, Crackles, Rales, Rhonchi, Stridor, Wheezing, Hyperresonant Cardiovascular: positive: Regular Rhythm, Regular Rate. negative: Murmur Gastrointestinal/Abdominal: positive: Normal Bowel Sounds, Tender (diffuse), Flat, Soft, Guarding, Rebound. negative: Organomegaly, Hernia Musculoskeletal: positive: Normal Inspection. negative: CVA Tenderness, Decreased Range of Motion Extremity: positive: Normal Capillary Refill, Normal Inspection, Normal Range of Motion, Pelvis Stable. negative: Tender Integumentary: positive: Normal Color, Dry, Warm Neurologic: positive: costume specialist II-XII NML intact, Fully Oriented, Alert, Normal Mood/ Affect, Normal Response, Motor Strength 5/5 ED Treatment Course - LABORATORY CBC & Chemistry Diagram: 06/08/19 00:51 06/07/19 18:15 - ADDITIONAL ORDERS Additional order review: Laboratory Results 06/07/19 06/07/19 06/07/19 18:15 18:15 18:15 Sodium 138 Potassium 4.2 Chloride 106 Carbon Dioxide 27 Anion Gap 5 L BUN 8.2 Creatinine 0.7 Est GFR (CKD-EPI)AfAm 136.66 Est GFR (CKD-EPI)NonAf 117.91 Random Glucose 90 Calcium 9.1 Total Bilirubin 0.4 AST 15 ALT 17 Alkaline Phosphatase 76 Total Protein 7.5 Albumin 3.7 Beta HCG, Quant 1375.9 Urine Color Yellow Urine Appearance Cloudy Urine pH 6.5 Ur Specific [place] 1.034 Urine Protein Trace Urine Glucose (UA) Negative Urine Ketones Trace H Urine Blood Negative Urine Nitrite Negative Urine Bilirubin Negative Urine Urobilinogen 1.0 Ur Leukocyte Esterase Negative Urine HCG, Qual Positive 06/07/19 18:15 RBC 3.69 MCV 93.7 MCHC 32.4 RDW 14.3 MPV 8.9 Neutrophils % 65.4 Lymphocytes % 26.6 Monocytes % 5.9 Eosinophils % 1.6 Basophils % 0.5 - Medications Given in the ED: ED Medications Discontinued Medications Generic Name Dose Route Start Last Admin Trade Name Freq PRN Reason Stop Dose Admin Acetaminophen 650 mg 06/07/19 19:36 06/07/19 19:43 Tylenol - PO 06/07/19 19:37 650 mg ONCE ONE Administration Medical Decision Making - Medical Decision Making 06/07/19 22:03 Patient presents with diffuse abdominal pain after intercourse today with some spotting. Per evaluation prior to main ED, patient has positive Upreg with Beta quant 1370 consistent with early . Getting TVUS for evaluation of ectopic at this time. Hgb 11.2 and stable, VS stable, non-tachycardic , but still having diffuse abdominal pain. Per prior provider, pelvic exam shows no CMT or bleeding/discharge. - Type and Screen x2 and coags for pre-op evaluation - 1L NS for rehydration 06/07/19 22:08 US: No intrauterine gestation or gestational sac is identified - ? early , ectopic , recent miscarriage. A moderate to large amount of complex free fluid is seen within the pelvis bilaterally, right more than left, suggestive of a hemoperitoneum. 2.7 cm and 2.5 cm hemorrhagic left ovarian cysts are seen. The right ovary appears unremarkable. No Doppler evidence of ovarian torsion, sensitivity 70%. No gross adnexal pathology is visualized. Given unable to see IUP in uterus and has left adnexal hemorrhagic cysts with free fluid, concern high for ruptured ectopic vs. ruptured cyst after sexual activity. Placing call to Dr. Renner for consult for medical vs. surgical management. Plan to trend Hgb over the next few hours to ensure stability. 06/07/19 22:46 Dr. Renner no longer part of practice. Spoke to Dr. Palomino, Beta < 1500, may be too low to see IUP, Hgb stable. Recommends trending Hgb/Hct in 6 hours, if stable can be discharged home with repeat Beta testing tomorrow in office. Dr. Roldan line controller tonight for OR if Hgb drops. Plan for repeat CBC at 00:30 tomorrow. 06/08/19 01:19 Repeat Hgb 9.2, drop of 2 point [address] Gaspar OBGYN line controller contacted, requests contacting Dr. Roldan. 06/08/19 01:55 Dr. Roldan paged 3 times without response. L&D contacted, given 2nd cell number. Attending discussed with Dr. Roldan, will come to evaluate. 06/08/19 03:25 Dr. Roldan in ED, evaluated patient, agrees to take to OR for likely ruptured ectopic. Discharge - Discharge Information Problems reviewed: Yes Clinical Impression/Diagnosis: Pelvic pain, Hemorrhagic cyst of left ovary, Ruptured ectopic Qualifiers: Weeks of gestation: less than 8 weeks Qualified Code(s): Z3A.01 - Less than 8 weeks gestation of Condition: Stable - Admission Yes - Follow up/Referral Referrals: Presley Aleman [Primary Care Provider] - - Patient Discharge Instructions - Post Discharge Activity
[2019-06-07 22:10] LABS: INR 1.13 (0.83-1.09); PROTHROMBIN TIME (PATIENT) 13.4 SEC (9.7-13.0)
[2019-06-07 22:13] LABS: ACTIVATED PTT 27.5 SECONDS (25.2-36.5)
[2019-06-08 01:10] LABS: BASO % 0.5 % (0-2.0); HEMATOCRIT 28.4 % (32.4-45.2); HEMOGLOBIN 9.2 GM/dL (10.7-15.3); LYMPH % 36.7 % (8-40); MCH 30.4 pg (25.7-33.7); MCHC 32.2 g/dl (32.0-36.0); MEAN CELL VOLUME 94.3 fl (80-96); MEAN PLT VOLUME 8.8 fl (7.5-11.1); MONO % 5.9 % (3.8-10.2); NEUT % 53.9 % (42.8-82.8); PLATELET COUNT 247 K/MM3 (134-434); RBC 3.01 M/mm3 (3.60-5.2); RDW 14.4 % (11.6-15.6); WHITE BLOOD COUNT 6.5 K/mm3 (4.0-10.0)
[2019-06-08] MEDS ORDERED: SODIUM CHLORIDE 0.9% 500 ML INFUS.BAG IV ONE (02:05)
--- NOTE | 2019-06-08 03:49 | CON.OBG ---
Consult Consult Specialty:: BALLET DANCER Reason for Consultation:: Suspicion of ruptured ectopic - History of Present Illness Chief Complaint: Abdominal pain History of Present Illness: 29 yo Para 2, LMP 05/12/19, presents to L&D c/o severe abdominal pain after sexual intercourse. She admits to nausea and vaginal spotting. BHCG is positive and pelvic ultrasound shows evidence of hemoperitoneum. BALLET DANCER called for evaluation. Decision made to take patient to OR for Laparoscopy. - History Source History Provided By: Patient Limitations to Obtaining History: No Limitations - Past Medical History ...LMP: 05/12/19 ...: Yes ...Para: 2 - Past Surgical History Past Surgical History: Yes: None - Alcohol/Substance Use Hx Alcohol Use: No - Smoking History Smoking history: Never smoked Have you smoked in the past 12 months: No - Social History ADL: Independent History of Recent Travel: No Home Medications - Allergies Allergies/Adverse Reactions: Allergies Allergy/AdvReac Type Severity Reaction Status Date / Time No Known Drug Allergies Allergy Verified 06/07/19 17:58 - Home Medications Home Medications: Ambulatory Orders NK [No Known Home Medication] 06/08/19 Family Medical History Family History: Unremarkable Review of Systems - Review of Systems Constitutional: denies: Chills, Fever, Weakness Eyes: reports: No Symptoms HENT: reports: No Symptoms Neck: reports: No Symptoms Cardiovascular: denies: Chest Pain, Palpitations Respiratory: denies: SOB on Exertion Gastrointestinal: reports: Abdominal Pain, Nausea Genitourinary: reports: Other (Vaginal spotting) Musculoskeletal: reports: No Symptoms Integumentary: reports: No Symptoms Neurological: reports: No Symptoms Endocrine: reports: No Symptoms Hematology/Lymphatic: reports: No Symptoms Psychiatric: reports: No Symptoms Pain Intensity: 5 Physical Exam-BALLET DANCER Vital Signs: Vital Signs Temperature 98.5 F 06/08/19 02:53 Pulse Rate 85 06/08/19 02:53 Respiratory Rate 18 06/08/19 02:53 Blood Pressure 101/51 L 06/08/19 02:53 O2 Sat by Pulse Oximetry (%) 100 06/08/19 02:53 Constitutional: No: No Distress Eyes: Yes: Conjunctiva Clear HENT: Yes: Atraumatic Neck: Yes: Supple Cardiovascular: Yes: Regular Rate and Rhythm Respiratory: Yes: Regular Gastrointestinal: Yes: Normal Bowel Sounds, Tenderness, Tenderness, Rebound Pelvis: Yes: Tenderness Musculoskeletal: Yes: WNL Extremities: Yes: WNL Neurological: Yes: Alert, Oriented ...Motor Strength: WNL Psychiatric: Yes: Alert, Oriented Labs: CBC, BMP 06/08/19 00:51 06/07/19 18:15 Assessment/Plan Abdominal pain in pregnanct R/O ruptured ectopic Pre op for Laparoscopy
[2019-06-08] MEDS ORDERED: SUCCINYLCHOLINE CHLORIDE 200 MG/10 ML SYRINGE ONE (05:14)
[2019-06-08] MEDS ORDERED: PROPOFOL 20 ML ONE (05:14)
[2019-06-08] MEDS ORDERED: ROCURONIUM BROMIDE 50 MG/5 ML SYRINGE ONE (05:14)
[2019-06-08] MEDS ORDERED: ONDANSETRON 4 MG/2 ML VIAL IVPUSH PRN (05:24)
[2019-06-08] MEDS ORDERED: oxyCODONE HCL 5 MG TABLET PO PRN (05:24)
[2019-06-08] MEDS ORDERED: LACTATED RINGERS SOLUTION 1,000 ML IV SCH (05:30)
[2019-06-08] MEDS ORDERED: DEXAMETHASONE SOD PHOSPHATE 4 MG/1 ML VIAL ONE (06:00)
[2019-06-08] MEDS ORDERED: LIDOCAINE HCL/PF 2% SDV 5ML VIAL ONE (06:00)
[2019-06-08] MEDS ORDERED: ceFAZolin SODIUM 1 GM VIAL IVPB ONE (06:05)
[2019-06-08] MEDS ORDERED: ceFAZolin SODIUM 1 GM VIAL ONE (06:06)
[2019-06-08] MEDS ORDERED: NEOSTIGMINE METHYLSULFATE 0.5 MG/ML - 10 ML MDV ONE (06:45)
[2019-06-08] MEDS ORDERED: GLYCOPYRROLATE 0.2 MG/1 ML VIAL ONE (06:45)
--- NOTE | 2019-06-08 07:16 | OP ---
Operative Note - Note: Operative Date: 06/08/19 Pre-Operative Diagnosis: Ectopic Operation: Laparoscopic Left salpingectomy Findings: Ruptured left tubal Post-Operative Diagnosis: Same as Pre-op Surgeon: Saba Roldan Geospatial Imagery Intelligence Analyst: Ray Chambers Anesthesia: General Specimens Removed: Left tubal Estimated Blood Loss (mls): 20
[2019-06-08] MEDS: IBUPROFEN 400 MG TABLET (FP) PO PRN ×3 (09:29→20:48)
[2019-06-08] MEDS: ACETAMINOPHEN 325 MG TABLET (FP) PO PRN ×3 (09:30→20:49)
[2019-06-08 15:29] VITALS: TEMP 97.8
[2019-06-08 17:17] LABS: BASO % 0.1 % (0-2.0); HEMATOCRIT 28.2 % (32.4-45.2); HEMOGLOBIN 9.1 GM/dL (10.7-15.3); LYMPH % 11.4 % (8-40); MCH 30.6 pg (25.7-33.7); MCHC 32.2 g/dl (32.0-36.0); MEAN PLT VOLUME 9.1 fl (7.5-11.1); NEUT % 85.5 % (42.8-82.8); PLATELET COUNT 219 K/MM3 (134-434); RBC 2.96 M/mm3 (3.60-5.2); RDW 14.4 % (11.6-15.6); WHITE BLOOD COUNT 7.3 K/mm3 (4.0-10.0)
[2019-06-08 21:32] VITALS: BP 122/64; PULSE 80
--- NOTE | 2019-06-11 15:20 | PATH ---
Surgical Pathology Report Patient Name: ABIGAIL LOO Med. Rec. #: [id number] /Age/Gender: 1990 (Age: 29) / F Account: [id number] Location: AMBULATORY SURG Taken: 06/08/2019 Received: 06/08/2019 Reported: 06/11/2019 Physicians: Saba Roldan M.D. Specimen(s) Received LEFT ECTOPIC Clinical History Ruptured ectopic Final Diagnosis FALLOPIAN TUBE, LEFT, ECTOPIC, LAPAROSCOPIC SALPINGECTOMY: CHORIONIC VILLI IN A BACKGROUND OF HEMORRHAGE PRESENT WITHIN THE FALLOPIAN TUBE AND SEPARATELY SUBMITTED BLOOD CLOT, CONSISTENT WITH RUPTURED ECTOPIC . Electronically Signed Shamika Dumont M.D. Gross Description Received in formalin labeled "left ectopic ," is a 2.1 cm in length portion of fallopian tube. No fimbria are identified. The outer surface is adamson-pink with a focal defect. Sectioning reveals a focal hemorrhagic lumen. Also received in the same container is a 2.7 x 0.8 x 0.3 cm adamson-brown blood clot. No definitive villous tissue is identified. The specimen is entirely submitted in 3 cassettes as follows: [id number] submitted cross sections of fallopian tube; 3-separately received blood clot. DL/06/08/2019 saudi06/08/2019
--- NOTE | 2019-06-14 10:43 | OP ---
DATE OF OPERATION: 06/08/2019 PREOPERATIVE DIAGNOSIS: Ectopic . POSTOPERATIVE DIAGNOSIS: Left tubal . SURGEON: Saba Roldan MD MAINTENANCE CHIEF: ANESTHESIA: General. COMPLICATIONS: None. ESTIMATED BLOOD LOSS: 50 mL. DESCRIPTION OF PROCEDURE: Patient was taken to the operating room where general anesthesia was administered. Patient was then placed in lithotomy position. She was then prepped and draped in proper sterile fashion. A weighted speculum was placed in the patient's vagina, and the anterior lip of the cervix was grasped with a single-tooth tenaculum. The HUMI uterine manipulator was then advanced into the uterus to provide a means to manipulate the uterus. Then, the speculum was removed from the vagina. Attention was then turned to the patient's abdomen where a 5-mm skin incision was made in the umbilical fold. The Veress needle was carefully introduced into the peritoneal cavity while tenting the abdominal wall. Intraperitoneal placement was confirmed by use of the and an intraabdominal pressure with infiltration of CO2 gas. A trocar and tube were then advanced without difficulty into the abdomen where intraabdominal placement was confirmed by the laparoscope. Pneumoperitoneum was obtained with 3 L of CO2 gas. Then, the 5-mm trocar and sleeve were then advanced without difficulty into the abdomen where intraabdominal placement was confirmed by the laparoscope. A second skin incision was then made on the right side of the pelvis 3 cm above the pubic symphysis and 5 cm away from the midline. The second trocar and sleeve were then advanced under direct visualization. A third skin incision on the left side was then made 5 cm from the midline, and the third trocar and sleeve were then advanced under direct visualization. On the right side, a 10 trocar was placed. A survey of the patient's pelvis and abdomen revealed 500 mL of hemoperitoneum. Then, all the blood was then suctioned out of the pelvis, and the left tubal was noted. It was ruptured. Using the LigaSure device, the left tubal was excised. Hemostasis was assured. The tubal was then exited from the right port. The pelvis and abdomen were then completely irrigated, and the HUMI was found to perforate the uterus. On deflation of the HUMI, there was no bleeding noted. Then, the instruments were removed. The fascia on the right port was closed using 0 Vicryl, and the other incisions were closed using Dermabond. The Estrada catheter and HUMI were then removed from the patient's vagina. The patient tolerated procedure well. She was taken to PACU in stable condition. PATHOLOGY: Left tubal . Ap [id number]
== END 2019-06-08 21:30 | disposition home or self-care (01) ==
LOC: JER 17:23 → JASUSAT 06-08 03:23 → J3W 06-08 09:10 → JASUSAT 06-08 21:30
PROVIDERS: ATTEND Obstetrics & Gynecology
PROC: 0UT64ZZ Resection of Left Fallopian Tube, Percutaneous Endoscopic Approach (ICD-10-PCS; 2019-06-08)
PROC: 10T24ZZ Resection of Products of Conception, Ectopic, Percutaneous Endoscopic Approach (ICD-10-PCS; principal; 2019-06-08 04:46)
DX: O00.102 Left tubal pregnancy without intrauterine pregnancy (principal)
CPT/HCPCS: 36415; 76817-TC; 80053; 81003; 84702; 84703; 85025; 85610; 85730; 86593; 86850; 86900; 86901; 87086; 87491; 87591; 88305-TC; 94760; 99283-25